=== PATIENT | male | born 1965 | race Two or more races ===

== ENCOUNTER 2020-07-07 14:43 | Emergency (ER) | payer SELFPAY ==
[~2020-07-07] VITALS: Ht 175.3 cm; Wt 74.8 kg
[2020-07-07] MEDS ORDERED: LORazepam 2MG/ML-1ML VIAL IV ONE (15:00)
[2020-07-07] MEDS ORDERED: SODIUM CHLORIDE 0.9% 1,000 ML IV ONE ×2 (15:00→19:30)
[2020-07-07 15:47] LABS: Basophils # (auto) 0.1 10 ^3/uL (0-0.2); Basophils % (auto) 2.2 % (0.0-2.0); Eosinophils # (auto) 0 10 ^3/uL (0-0.8); Eosinophils % (auto) 0.3 % (0.0-7.0); Hematocrit 48.6 % (41.0-53.0); Hemoglobin 16.7 g/dL (13.5-17.5); Lymphocytes # (auto) 1.7 10 ^3/uL (0.4-5.4); Lymphocytes % (auto) 36.5 % (10.0-50.0); Mean Corpuscular Hemoglobin 31.2 pg (28.0-32.0); Mean Corpuscular Hgb Conc. 34.4 g/dL (32.0-36.0); Mean Corpuscular Volume 90.9 fL (80.0-100.0); Monocytes # (auto) 0.5 10 ^3/uL (0-1.3); Neutrophils # (auto) 2.4 10 ^3/uL (1.6-8.6); Nucleated Red Blood Cells % 0.1 %; Red Blood Cells 5.35 10^6/uL (4.5-5.90); White Blood Cell 4.7 10^3/uL (4.4-10.8)
[2020-07-07 16:11] LABS: Albumin 3.9 g/dL (3.4-5.0); Anion Gap 3 (5-15); Blood Alcohol < 3.0 mg/dL (0-5); Blood Urea Nitrogen 7 mg/dL (7-18); Calcium 8.6 mg/dL (8.5-10.1); Carbon Dioxide 31 mmol/L (21-32); Chloride 106 mmol/L (98-107); Glucose 131 mg/dL (74-106); Potassium 3.5 mmol/L (3.5-5.1); Sodium 140 mmol/L (136-145)
[2020-07-07 16:20] LABS: Alanine Aminotransferase 31 U/L (16-61); Alkaline Phosphatase 126 U/L (45-117); Aspartate Aminotransferase 29 U/L (15-37); BUN/Creatinine Ratio 3.1; Bilirubin, Total 1.1 mg/dL (0.2-1.0); GFR African American 39 mL/min; GFR Non-African American 32 mL/min; Total Protein 7.6 g/dL (6.4-8.2)
[2020-07-07] MEDS ORDERED: KETOROLAC TROMETH 30 MG/ML 1ML VIAL IV ONE (17:15)
[2020-07-07] MEDS ORDERED: LABETALOL HCL 5 MG/ML 4ML SYRINGE IV ONE (19:30)
[2020-07-07 20:08] VITALS: BP 134/99
== END 2020-07-07 20:59 | disposition home or self-care (01) ==
LOC: ER 14:43 → EDBD 14:43 → ER 20:59
DX: F10.239 Alcohol dependence with withdrawal, unspecified (principal); F10.221 Alcohol dependence with intoxication delirium; Y90.0 Blood alcohol level of less than 20 mg/100 ml; R06.00 Dyspnea, unspecified; I10 Essential (primary) hypertension
CPT/HCPCS: 36415; 70450; 80053; 80320; 85025; 93005; 96361; 96374; 96375; 99285; J1885; J2060; J3490